=== PATIENT | female | born 1995 | race Caucasian/White ===

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

== ENCOUNTER 2017-01-10 09:13 | Inpatient (IN) ==
[2017-01-10] MEDS ORDERED: Ondansetron 4 MG/2 ML VIAL IVP PRN (09:55)
[2017-01-10] MEDS ORDERED: Famotidine 20 MG/2 ML VIAL IVP PRN (09:55)
[2017-01-10] MEDS ORDERED: miSOPROStol 25 MCG TABLET PO PRN (09:55)
[2017-01-10] MEDS ORDERED: Ringers Solution, Lactated 1,000 ML IVC SCH (10:00)
[2017-01-10 10:05] LABS: Basophils % 0.3 %; Eosinophils # 0.1 K/mcL (0.0-0.6); Eosinophils % 1.9 %; Hematocrit 27.2 % (35.3-44.9); Hemoglobin 8.6 g/dL (11.5-15.4); Immature Granulocytes % 0.6 % (0-4); Lymphocytes # 1.9 K/mcL (0.6-4.6); Lymphocytes % 28.7 %; Mean Corpuscular HGB Conc 31.6 g/dL (31.6-35.5); Mean Corpuscular Hemoglobin 26.4 pg (28.0-33.3); Mean Corpuscular Volume 83.4 fL (83.0-100.0); Mean Platelet Volume 10.8 fL (9.4-12.4); Monocytes # 0.5 K/mcL (0.0-1.3); Monocytes % 7.3 %; Neutrophils # 4.1 K/mcL (1.6-8.9); Platelet Count 237 K/mcL (140-400); Red Blood Count 3.26 M/mcL (3.82-4.97); Red Cell Distribution Width 15.5 % (11.5-14.5); Segmented Neutrophils % 61.2 %
--- NOTE | 2017-01-10 10:57 | OB/GYN History & Physical ---
Date of Encounter: 01/10/17 Time of Encounter: 10:51 Assessment and Plan (1) 39 weeks gestation of Current visit: Yes Status: Acute Admit to labor and delivery Induction via Cytotec by Dr. Cabello Epidural if desired Anticipate vaginal delivery (2) First in adolescent 16 years of age or older in third trimester Current visit: Yes Status: Acute (3) Elective induction of labor planned Current visit: Yes Status: Acute will induce with cytotec PO History of Present Illness Chief complaint: Induction of Labor HPI: Ms. Blood is a 21 year old female, , 39+0, presenting to labor and delivery for induction of labor wit Dr. Cabello. Pt reports good movement, denies loss of fluid or contractions. Labs: Negative: GBS, Hepatitis B, HIV, Syphilis, GC/CT Immune: Rubella Non-immune: VZV Blood type: A+ agree with above, patient is a 21-year-old 1 para 0 at 39-0/7 weeks who presented for induction of labor secondary to with favorable cervix. Patient has been complaining about vaginal pressure and wanted be delivered since approximately 35 weeks. She was advised when seen at 39 week range with a favorable cervix. Induce. Her course has been unremarkable. Past Med Surg Social Fam HX - Past Medical History Medical history: asthma Psychiatric history: ADHD - Past Surgical History Surgical History: no surgical history - Social History Smoking Status: Never smoker Smokeless Tobacco Status: No Alcohol use: none Drug use: none - Family History Mother Adopted: No Living Status: Still Living Hx Family Cardiac Disorders: Yes (htn) Hx Family Respiratory Disorders: No Hx Family Cancer: Yes (thyroid cancer) Hx Family GI Disorders: No Hx Family Endocrine Disorder: Yes (diabetes) Hx Family Neuromuscular Disorders: No Hx Family Neurologic Disorders: No Hx Family HEENT Disorders: No Hx Family Autoimmune Disorders: No Obstetrical History - Pregnancies : 1 Livin Medications and Allergies Ferrous Sulfate [Iron] 1 tab PO BID 12/30/16 [History] Vit Calc,Iron,Folic [ Vitamins] 1 tab PO DAILY 12/30/16 [ History] 3 Allergy/AdvReac Type Severity Reaction Status Date / Time No Known Allergies Allergy Verified 01/10/17 09:59 Review of System OB - Constitutional Constitutional ROS IM: no chills - Respiratory Respiratory: no dyspnea - Genitourinary Genitourinary: no abnormal vaginal bleeding Exam - Constitutional Constitutional: well developed, well nourished, no acute distress, average body habitus - HEENT HEENT: Normocephaly, Mucus Membranes Moist - Neck Neck exam: full ROM - Lungs Respiratory exam: CTAB - Cardiovascular Cardiovascular exam: +S1, +S2 - Abdomen Abdomen: Present: bowel sounds normal - Cervix Dilation: 4 Effacement: 80 Station: -3 Results Result Diagrams: 01/10/17 09:52 Abnormal lab results RBC 3.26 M/mcL (3.82-4.97) L 01/10/17 09:52 Hgb 8.6 g/dL (11.5-15.4) L 01/10/17 09:52 Hct 27.2 % (35.3-44.9) L 01/10/17 09:52 MCH 26.4 pg (28.0-33.3) L 01/10/17 09:52 RDW 15.5 % (11.5-14.5) H 01/10/17 09:52 All other labs normal. - VTE Reasons for not Prescribing Prophylaxis: Treatment not Indicated - Low risk for VTE - Attending Attestation I examined this patient and my medical decision-making was reviewed with the Resident Physician. I agree with the documented findings, disposition and treatment plan as described except to the extent set forth below. Barak Cabello
--- NOTE | 2017-01-10 13:01 | OB Labor Progress Note ---
Date of Encounter: 01/10/17 Time of Encounter: 13:00 Labor Progress Note - Subjective Subjective: Patient's doing well states feeling contractions in her back not that uncomfortable at this point. - Cervix Cervix: 4/80/-2 AROM clear fluid noted - Heart Tones Heart Tones: heart tones 140s reactive - [place]: Contractions every 2-3 minutes irregular internal pressure catheter placed - Plan Plan: anticipate
[2017-01-10] MEDS ORDERED: *HR* Nalbuphine 20 MG/ML AMPUL ONE (14:18)
[2017-01-10] MEDS ORDERED: Oxytocin 20 units/ LR 1000 mL 20 UNIT/1,000 ML BAG IVC SCH (15:30)
[2017-01-10] MEDS ORDERED: Epidural Premix (fent/bupiv) 110 ML EP ONE ×2 (15:42→22:27)
[2017-01-10] MEDS ORDERED: Epidural Premix (fent/bupiv) 110 ML EP SCH (15:45)
--- NOTE | 2017-01-10 16:33 | Anesthesia Evaluation PreOp ---
Date of Encounter: 01/10/17 Time of Encounter: 16:00 - Past History Planned Operation: [facility] Cardiac History: Denies any Significant Hx Pulmonary History: Asthma CLINICAL CASE MANAGER History: Denies Any Significant HX Other Medical History: Denies Any Significant HX Anesthesia History: No Prior Anesthetic Complications : Yes Test: Positive Alcohol Use: none Drug use: none Medications and Allergies Ferrous Sulfate [Iron] 1 tab PO BID 12/30/16 [History] Vit Calc,Iron,Folic [ Vitamins] 1 tab PO DAILY 12/30/16 [ History] 3 Allergy/AdvReac Type Severity Reaction Status Date / Time No Known Allergies Allergy Verified 01/10/17 09:59 - Meds/Allergy Pre-op Review Medications Reviewed: Yes Allergies Reviewed: Yes Beta Blockers on Current Med List: No Anesthesia Results - Labs 01/10/17 09:52 Anesthesia Exam Height: 62 Weight: 82 NPO (# of Hours): MN Pain Scale: 10 - HEENT Pupil (Motor): Pupils equal Mallampati: II Teeth: Normal Oral Opening: Greater than 3 - CLINICAL CASE MANAGER LOC: Oriented CLINICAL CASE MANAGER Motor: Normal RUE, Normal LUE, Normal RLE, Normal LLE, Normal Face CLINICAL CASE MANAGER Sensory: Normal: RUE, LUE, RLE, LLE, Face - Cardiac Rhythm: Regular Murmur: None JVD: No Carotid Bruit: No - Pulmonary Breath Sounds: bilateral Clear
--- NOTE | 2017-01-10 16:36 | Anesthesia Procedures ---
Date of Encounter: 01/10/17 Time of Encounter: 16:00 Procedures: Anesthesia - Epidural/Spinal Patient ID/Chart reviewed: Yes Patient examined: Yes OB Eval: Gestational age: 39 OB Eval: : 1 OB Eval: Hx Para: 0 OB Eval: Dilated at (cm): 4 OB Eval: Contractions: Non-stressed pattern Consent Obtained: Yes Supplemental Oxygen: None/Room Air Site Prep: Aseptic Technique, Sterile prep and drape, Povidone-Iodine 1% Patient position: upright Local Anesthetic: Lidocaine 1% Amount of Local Anesthetic used: 3 Touhy Needle Depth (cm): 4 Catheter Depth at Skin (cm): 8 Test Dose (1.5% Lido + Epi): Volume given (mls): 3 Test Dose Result: Negative Infusion Rate (mls/hr): [address]: Tegaderm, Tape Interspace Used: L3-L4 Loss of Resistance (SHEILA): Yes Blood: No CSF: No Paresthesia: No
--- NOTE | 2017-01-10 19:08 | OB Labor Progress Note ---
Date of Encounter: 01/10/17 Time of Encounter: 19:00 Labor Progress Note - Subjective Subjective: patient still comfortable with epidural not feeling the contractions - Cervix Cervix: 6/100/-1 - Heart Tones Heart Tones: heart tones 140s reactive - [place]: Contractions every 1-2 minutes - Plan Plan: continue current care
[2017-01-10] MEDS ORDERED: *HR* FentaNYL (PF) 100 MCG/2 ML VIAL ONE (23:48)
[2017-01-11] MEDS ORDERED: Epidural Premix (fent/bupiv) 110 ML EP ONE (05:00)
[2017-01-11] MEDS ORDERED: Lidocaine 1% 20 ML MDV ONE (05:38)
--- NOTE | 2017-01-11 06:50 | OB/GYN Procedure Note ---
Delivery - Delivery Date: 01/11/17 Provider: Flaquito Cabello Intrapartum events: prolonged labor- > = 20hr Delivery induction: misoprostol Delivery augmentation: pitocin Delivery monitor: external FHT, external uterine, internal uterine Anesthesia: local, epidural Estimated Blood Loss: 200 - (s) Infant A Infant Delivery Date: 01/11/17 Infant Delivery Time: 05:41 Presentation: vertex Position: OA Route of delivery: Gender: Male Viability: Viable Pounds: 8 Ounces: 8 Weight Gram: 3.845 kg at 1 minute: 8 at 5 mins: 9 Shoulder Dystocia: encountered Shoulder Dystocia Maneuvers: Mike maneuver, suprapubic pressure, delivery of posterior arm Shoulder dystocia time elapsed: 30 sec Placenta: spontaneous Cord: 3 umbilical vessels - Repair Episiotomy: none Laceration Description: Perineal - 2nd Degree, Vaginal (right), Labial (left) - Complications Delivery complications: none Delivery comments: Patient is a 21-year-old 1 para 0 at 39-0/7 weeks who presented to labor and delivery for induction of labor secondary to with favorable cervix. Patient is 3-4 cm in the office and wanted her baby delivered and was scheduled for an induction. Upon arrival to labor and delivery patient was 3-4 cm and she was given by mouth Cytotec. Patient's contractions became every 1-2 minutes she was artificially ruptured when she was 4-5 cm with clear fluid. Patient progressed slowly we eventually did augmented with some Pitocin when she finally became complete patient labored down and pushed for approximately 45 minutes delivering a viable male infant in occiput anterior presentation at 0 541. We did encounter a shoulder dystocia did require Mike maneuver and suprapubic pressure and finally we had to deliver the posterior shoulder first before get the anterior shoulder. Infant was then bulb suctioned the abdomen because 8 at one minutes, 9 at 5 months, infant weight was 8 lbs. 8 oz. Placenta was then delivered spontaneously with a three-vessel cord, crna at [place], anesthesia epidural local, estimated blood loss 200 mL. Patient had a left labial laceration second-degree perineal laceration and a right vaginal laceration repaired with 3-0 Vicryl in the usual fashion. Cervix and vagina was visualized intact. Patient tolerated the delivery well she will be observed 2 hours before been taken to floor. - Disposition Mom disposition: stable in LDR [place] disposition: stable in LDR
[2017-01-11] MEDS ORDERED: Oxytocin 20 units/ LR 1000 mL 20 UNIT/1,000 ML BAG IVC SCH (08:01)
[2017-01-11] MEDS ORDERED: Measles/Mumps/Rubella Vacc 0.5 ML VIAL SQ PRN (08:01)
[2017-01-11] MEDS ORDERED: Ibuprofen 600 MG TABLET PO PRN (08:01)
[2017-01-11] MEDS ORDERED: *HR* HYDROcodone/Acet 5/325 mg TABLET PO PRN (08:01)
[2017-01-11] MEDS ORDERED: NON-FORMULARY MEDICATION 1 EACH EACH (Prenatal Vit Calc,Iron,Folic [Prenatal Vitamins] 1 T PO SCH (09:00)
[2017-01-11] MEDS ORDERED: Prenatal Vit/FA 1 EACH TABLET PO SCH (09:00)
[2017-01-11] MEDS ORDERED: Ringers Solution, Lactated 1,000 ML ONE (09:28)
[2017-01-11] MEDS: Acetaminophen 325 MG TABLET PO PRN (16:41)
[2017-01-12 06:08] LABS: Basophils % 0.2 %; Eosinophils # 0.1 K/mcL (0.0-0.6); Eosinophils % 0.8 %; Hematocrit 21.8 % (35.3-44.9); Immature Granulocytes % 0.7 % (0-4); Lymphocytes # 2.6 K/mcL (0.6-4.6); Mean Corpuscular HGB Conc 32.1 g/dL (31.6-35.5); Mean Corpuscular Hemoglobin 27.1 pg (28.0-33.3); Mean Corpuscular Volume 84.5 fL (83.0-100.0); Monocytes # 0.7 K/mcL (0.0-1.3); Monocytes % 6.1 %; Neutrophils # 8.3 K/mcL (1.6-8.9); Platelet Count 186 K/mcL (140-400); Red Blood Count 2.58 M/mcL (3.82-4.97); Red Cell Distribution Width 16.3 % (11.5-14.5); Segmented Neutrophils % 70.2 %
[2017-01-12] MEDS: Acetaminophen 325 MG TABLET PO PRN (07:02)
--- NOTE | 2017-01-12 07:38 | Discharge Summary ---
Date of Encounter: 01/12/17 Time of Encounter: 07:35 - Discharge Diagnosis (1) 39 weeks gestation of Priority: Secondary Status: Acute (2) First in adolescent 16 years of age or older in third trimester Priority: Secondary Status: Acute (3) Elective induction of labor planned Priority: Secondary Status: Acute (4) Status post vaginal delivery Priority: Primary Status: Acute (5) Acute blood loss anemia Priority: Secondary Status: Acute - Discharge Medications Prescriptions: HYDROcodone/Acet 5/325 mg [Bailey 5-325 mg] 1 tab PO Q6HR PRN #28 tab PRN Reason: Moderate Pain (4-6) Ibuprofen [Motrin] 600 mg PO Q6HR PRN #30 tab PRN Reason: Cramping Ferrous Sulfate [Iron] 1 tab PO BID #60 mg Home Medications: Vit Calc,Iron,Folic [ Vitamins] 1 tab PO DAILY 12/30/16 [ History] Ferrous Sulfate [Iron] 1 tab PO BID #60 mg 01/12/17 [Rx] HYDROcodone/Acet 5/325 mg [Bailey 5-325 mg] 1 tab PO Q6HR PRN #28 tab 01/12/17 [ Rx] Ibuprofen [Motrin] 600 mg PO Q6HR PRN #30 tab 01/12/17 [Rx] Allergies/Adverse Reactions: 3 Allergy/AdvReac Type Severity Reaction Status Date / Time No Known Allergies Allergy Verified 01/10/17 09:59 Data Procedures and tests throughout hospitalization: Laboratory Tests 01/10/17 01/12/17 09:52 05:40 WBC 6.7 11.8 H D RBC 3.26 L 2.58 L Hgb 8.6 L 7.0 L D Hct 27.2 L 21.8 L MCV 83.4 84.5 MCH 26.4 L 27.1 L MCHC 31.6 32.1 RDW 15.5 H 16.3 H Plt Count 237 186 MPV 10.8 11.0 Immature Gran % 0.6 0.7 Seg Neutrophils % 61.2 70.2 Lymphocytes % 28.7 22.0 Monocytes % 7.3 6.1 Eosinophils % 1.9 0.8 Basophils % 0.3 0.2 Neutrophils # 4.1 8.3 Lymphocytes # 1.9 2.6 Monocytes # 0.5 0.7 Eosinophils # 0.1 0.1 Basophils # 0.0 0.0 Labs on day of discharge: Labs from last 24 hours 01/12/17 05:40 WBC 11.8 H D RBC 2.58 L Hgb 7.0 L D Hct 21.8 L MCV 84.5 MCH 27.1 L MCHC 32.1 RDW 16.3 H Plt Count 186 MPV 11.0 Immature Gran % 0.7 Seg Neutrophils % 70.2 Lymphocytes % 22.0 Monocytes % 6.1 Eosinophils % 0.8 Basophils % 0.2 Neutrophils # 8.3 Lymphocytes # 2.6 Monocytes # 0.7 Eosinophils # 0.1 Basophils # 0.0 Date of admission: 01/10/17 09:13 Primary care physician: Kerry Triplett MD Consults: 01/11/17 08:01 Consult to Entry Level Account Representative [CONS] Routine Comment: Vaginal delivery, consult needed 01/11/17 21:54 Consult to Sausage Cutter (W&C) [CONS] Routine Reason For Exam: Reason for SW Consult: paternity issues Discharging clinician: Flaquito Cabello Anticipated date of discharge: 01/12/17 - Patient Status Disposition: Home, Self-Care Condition: Good Functional capacity at discharge: independent ambulation Overall status at discharge: patient is back to baseline - Discharge Instructions Follow Up With: Kerry Triplett MD [Primary Care Provider] - Flaquito Cabello DO [Partnered Physician] - - Diet and Activity Activity: increase activity as tolerated Diet: advance to your usual diet Hospital Course Procedures: Status post vaginal delivery Reason for admission: induction of labor Delivery: Episiotomy: none Laceration: vaginal side wall, 2nd degree, other (Left labial) Other procedures: none complications: other (Anemia) Discharge diagnosis: IUP at term delivered baby: male Hospital course: Patient is 21-year-old status post vaginal delivery who presented for induction of labor secondary to term with favorable cervix. Patient underwent a normal spontaneous vaginal delivery without complications. She did have a left labial laceration and a second-degree perineal repaired in usual fashion. Patient was anemic when she presented to labor and delivery is still anemic with hemoglobin of 7 she is asymptomatic. She is not lightheaded dizzy when she gets up some numbness around. She is having minimal bleeding and is ready to go home. Patient will be discharged home with a prescription for Motrin 600 mg #30 Vicodin 5 mg #28 and 9 sulfate 325 mg twice a day she will follow-up in the office in 4 weeks induction at the time of discharge was stable. Time Attestation: Total time spent providing and/or coordinating discharge services: Exam - Constitutional Vitals: Temp Pulse Resp BP Pulse Ox 98.0 F 88 16 100/65 98 01/12/17 05:30 01/12/17 05:30 01/12/17 05:30 01/12/17 05:30 01/12/17 05:30
[2017-01-12 08:06] VITALS: BP 105/69
== END 2017-01-12 16:01 | disposition home or self-care (01) | DRG 560 ==
LOC: 1NENULAB 09:13 → 1NENUOBS 01-11 09:23
PROVIDERS: ADMIT Obstetrics & Gynecology; ATTEND Obstetrics & Gynecology

== ENCOUNTER → 2019-05-15 13:25 | Observation (INO) ==
[2019-05-14 23:33] LABS: Candida DNA Not Detected (Not Detect); Gardnerella DNA Not Detected (Not Detect); Trichomonas DNA Not Detected (Not Detect)
[2019-05-14 23:44] LABS: Amphetamine Screen,Urine Negative ng/mL (Cutoff=1000); Barbiturate Screen,Urine Negative ng/mL (Cutoff=200); Benzodiazepines Screen,Urine Negative ng/mL (Cutoff=200); Cannabinoid Screen,Urine Negative ng/mL (Cutoff = 50); Cocaine Screen,Urine Negative ng/mL (Cutoff= 300); Opiate Screen,Urine Negative ng/mL (Cutoff=300); Phencyclidine Screen,Urine Negative ng/mL (Cutoff=25)
[2019-05-15] LABS: Bilirubin,Urine Small (Negative); Blood,Urine Negative (Negative); Clarity,Urine Cloudy (Clear); Color,Urine Dark Yellow (Yellow); Glucose,Urine (UA) Normal (Normal); Ketones,Urine 80 mg/dL (Negative); Leukocyte Esterase,Urine Trace (Negative); Nitrite,Urine Negative (Negative); Protein,Urine 30 mg/dL (Neg-Trace); Specific Gravity,Urine > 1.030 (1.010-1.025); Urobilinogen,Urine Normal (Normal)
[2019-05-15 00:02] LABS: Bacteria,Urine Few per hpf (None-Few); Squamous Epithelial Cell,Urine Many per lpf (None-Few); WBC,Urine 30-50 per hpf (0-3)
[2019-05-15 00:25] LABS: RBC,Urine 0-3 per hpf (0-3)
[2019-05-15 02:47] LABS: Basophils % 0.3 %; Eosinophils % 0.3 %; Hematocrit 32.9 % (35.3-44.9); Hemoglobin 11.3 g/dL (11.5-15.4); Immature Granulocytes % 0.3 % (0-4); Lymphocytes # 0.7 K/mcL (0.6-4.6); Lymphocytes % 9.7 %; Mean Corpuscular HGB Conc 34.3 g/dL (31.6-35.5); Mean Corpuscular Hemoglobin 30.4 pg (28.0-33.3); Mean Corpuscular Volume 88.4 fL (83.0-100.0); Mean Platelet Volume 10.2 fL (9.4-12.4); Monocytes # 0.2 K/mcL (0.0-1.3); Monocytes % 2.8 %; Neutrophils # 6.4 K/mcL (1.6-8.9); Platelet Count 245 K/mcL (140-400); Red Blood Count 3.72 M/mcL (3.82-4.97); Red Cell Distribution Width 13.1 % (11.5-14.5); Segmented Neutrophils % 86.6 %; White Blood Count 7.4 K/mcL (4.3-11.1)
[~2019-05-15 13:25] MED LIST: Acetaminophen 325 MG TABLET PO ONE; D5% in Lactated Ringers 1,000 ML IVC SCH; Ondansetron 4 MG/2 ML VIAL IVP PRN; Pyridoxine (B-6) 20 MG, DiphenhydraMINE 50 MG, MVI, adult with vitamin K 10 ML in D5%... IVP SCH; Ringers Solution, Lactated 1,000 ML IVC SCH; Ringers Solution, Lactated 1,000 ML ONE
== END | disposition still patient (30) ==
LOC: 1NENULAB
PROVIDERS: ADMIT Registered Nurse; ATTEND Registered Nurse

== ENCOUNTER → 2019-07-01 18:23 | Observation (INO) ==
[2019-07-01 17:54] LABS: Bilirubin,Urine Negative (Negative); Blood,Urine Negative (Negative); Clarity,Urine Cloudy (Clear); Color,Urine Yellow (Yellow); Glucose,Urine (UA) Normal (Normal); Ketones,Urine Negative (Negative); Leukocyte Esterase,Urine Negative (Negative); Nitrite,Urine Negative (Negative); PH,Urine 6.5 pH Units (5.0-8.0); Protein,Urine Negative (Neg-Trace); Specific Gravity,Urine 1.023 (1.010-1.025); Urobilinogen,Urine Normal (Normal)
[2019-07-01 17:57] LABS: Hyaline Casts,Urine None Seen per lpf (None-Few); Squamous Epithelial Cell,Urine Many per lpf (None-Few)
[2019-07-01 18:29] LABS: Bacteria,Urine Few per hpf (None-Few)
== END | disposition home or self-care (01) ==
LOC: 1NENULAB
PROVIDERS: ADMIT Advanced Practice Midwife; ATTEND Advanced Practice Midwife

== ENCOUNTER → 2019-07-31 14:49 | Observation (INO) ==
[2019-08-01 02:02] LABS: Candida DNA Not Detected (Not Detect); Gardnerella DNA Not Detected (Not Detect); Trichomonas DNA Not Detected (Not Detect)
== END | disposition home or self-care (01) ==
LOC: 1NENULAB
PROVIDERS: ADMIT Registered Nurse; ATTEND Registered Nurse

== ENCOUNTER 2019-08-02 07:55 | Inpatient (IN) ==
[2019-08-02] MEDS ORDERED: Metoclopramide 10 MG/2 ML VIAL IVP PRN (08:10)
[2019-08-02] MEDS ORDERED: *HR* FentaNYL (PF) 100 MCG/2 ML VIAL IVP PRN (08:10)
[2019-08-02] MEDS ORDERED: Naloxone 0.4 MG/ML INJ IVP PRN (08:10)
[2019-08-02] MEDS ORDERED: Ondansetron 4 MG/2 ML VIAL IVP PRN (08:10)
[2019-08-02] MEDS ORDERED: Famotidine 20 MG/2 ML VIAL IVP PRN (08:10)
[2019-08-02 08:46] LABS: Basophils % 0.4 %; Eosinophils # 0.1 K/mcL (0.0-0.6); Eosinophils % 0.8 %; Hemoglobin 9.3 g/dL (11.5-15.4); Immature Granulocytes % 0.5 % (0-4); Lymphocytes # 2.7 K/mcL (0.6-4.6); Mean Corpuscular Hemoglobin 25.7 pg (28.0-33.3); Mean Corpuscular Volume 85.6 fL (83.0-100.0); Mean Platelet Volume 11.1 fL (9.4-12.4); Monocytes # 0.5 K/mcL (0.0-1.3); Monocytes % 6.2 %; Platelet Count 227 K/mcL (140-400); Red Blood Count 3.62 M/mcL (3.82-4.97); Red Cell Distribution Width 15.9 % (11.5-14.5); Segmented Neutrophils % 60.1 %; White Blood Count 8.4 K/mcL (4.3-11.1)
[2019-08-02] MEDS ORDERED: Oxytocin 20 units/ LR 1000 mL 20 UNIT/1,000 ML BAG IVC SCH ×2 (09:15→22:08)
[2019-08-02] MEDS: Ringers Solution, Lactated 1,000 ML IVC SCH ×2 (09:30→11:48)
[2019-08-02 09:58] LABS: Amphetamine Screen,Urine Negative ng/mL (Cutoff=1000); Barbiturate Screen,Urine Negative ng/mL (Cutoff=200); Benzodiazepines Screen,Urine Negative ng/mL (Cutoff=200); Cannabinoid Screen,Urine Negative ng/mL (Cutoff = 50); Cocaine Screen,Urine Negative ng/mL (Cutoff= 300); Opiate Screen,Urine Negative ng/mL (Cutoff=300); Phencyclidine Screen,Urine Negative ng/mL (Cutoff=25)
[2019-08-02] MEDS ORDERED: Ropivacaine/PF 0.2% 20 ML VIAL EP ONE (10:53)
[2019-08-02] MEDS ORDERED: *HR* FentaNYL (PF) 100 MCG/2 ML VIAL EP ONE (10:53)
[2019-08-02] MEDS ORDERED: EPHEDrine 50 MG/ML VIAL IVP PRN (10:53)
[2019-08-02] MEDS ORDERED: Epidural Premix (fent/bupiv) 110 ML EP SCH (11:00)
[2019-08-02] MEDS ORDERED: *HR* FentaNYL (PF) 100 MCG/2 ML VIAL ONE (11:13)
[2019-08-02] MEDS ORDERED: Ropivacaine/PF 0.2% 20 ML VIAL ONE (11:13)
[2019-08-02] MEDS ORDERED: Lanolin 7 G OINT...G. TP PRN (22:08)
[2019-08-02] MEDS ORDERED: Acetaminophen 325 MG TABLET PO PRN (22:08)
[2019-08-02] MEDS ORDERED: Benzocaine/Menthol 56 GM AEROSOL SPRAY TP PRN (22:08)
[2019-08-02] MEDS ORDERED: Ibuprofen 600 MG TABLET PO PRN (22:08)
[2019-08-03 07:47] LABS: Basophils % 0.3 %; Eosinophils # 0.1 K/mcL (0.0-0.6); Eosinophils % 0.6 %; Hematocrit 23.6 % (35.3-44.9); Immature Granulocytes % 0.4 % (0-4); Lymphocytes # 2.7 K/mcL (0.6-4.6); Lymphocytes % 25.6 %; Mean Corpuscular HGB Conc 30.9 g/dL (31.6-35.5); Mean Corpuscular Hemoglobin 26.4 pg (28.0-33.3); Mean Corpuscular Volume 85.5 fL (83.0-100.0); Mean Platelet Volume 11.5 fL (9.4-12.4); Monocytes # 0.7 K/mcL (0.0-1.3); Monocytes % 6.7 %; Platelet Count 193 K/mcL (140-400); Red Blood Count 2.76 M/mcL (3.82-4.97); Red Cell Distribution Width 15.9 % (11.5-14.5); Segmented Neutrophils % 66.4 %; White Blood Count 10.5 K/mcL (4.3-11.1)
[2019-08-03 07:54] LABS: Hemoglobin 7.3 g/dL (11.5-15.4)
[2019-08-03] MEDS: Prenatal Vit/FA 1 EACH TABLET PO SCH ×2 (08:14→08:19)
[2019-08-03 15:45] VITALS: BP 112/74
== END 2019-08-03 18:16 | disposition home or self-care (01) | DRG 560 ==
LOC: 1NENULAB 07:55 → 1NENUOBS 08-03 00:55
PROVIDERS: ADMIT Obstetrics & Gynecology; ATTEND Obstetrics & Gynecology